=== PATIENT | female | born 1965 | race Caucasian/White ===

== ENCOUNTER 2019-08-13 07:48 | Outpatient (CLI) | payer BC, MEDICARE, SELFPAY ==
--- NOTE | ~2019-08-13 | NM_ITS ---
EXAM: NM gastric emptying study DATE: 08/13/2019 12:47 INDICATION: Nausea and vomiting. TECHNIQUE: A gastric emptying study was performed using the methodology of Jey VILLAFUERTE, et al. J Nucl Med 2007; 48:568-572. The patient was given a meal consisting of 2 scrambled eggs labeled with 1 mCi Tc-99m sulfur colloid, 2 slices of toast, two packages of jam, and approximately 120 mL of water. Si multaneous anterior and posterior 1-min images of the abdomen were obtained with the patient supine a t multiple time points over a total period of 4 hours. The geometric mean of anterior and posterior v iews was determined, and the percentage retention was calculated for each time point. COMPARISON: CT abdomen and pelvis 07/02/2019 FINDINGS: Gastric retention of the radiotracer-labeled meal was 91%, 61%, and 49% at the 1-hour, 2-h our, and 4-hour time points, respectively. With this technique, apparent rapid gastric emptying is dean ggested by <30% gastric retention at 1 hour. Delayed gastric emptying is defined by gastric retention of >90% at 1 hour, >60% retention at 2 hours, or >10% retention at 4 hours. IMPRESSION: 1. Delayed gastric emptying. Reviewed, dictated and finalized at location A. INE FEED OPERATOR
== END 2019-08-13 07:49 | disposition home or self-care (01) ==
PROVIDERS: Visit Provider Internal Medicine Gastroenterology
DX: R11.2 Nausea with vomiting, unspecified (principal); R19.7 Diarrhea, unspecified; K30 Functional dyspepsia
CPT/HCPCS: 78264; A9541

== ENCOUNTER 2019-08-18 10:26 | Observation (INO) | payer BC, MEDICARE, MEDICAID, SELFPAY ==
[2019-08-18] VITALS (7 sets, daily range): BP systolic 122–163; BP diastolic 55–76; PULSE 85–103; RESP 16–20; TEMP 36.1–36.4; O2SAT 95–100; BMI 30.5
--- NOTE | ~2019-08-18 | CT_ITS ---
EXAMINATION: CT abdomen pelvis wo con DATE: 08/18/2019 11:47 INDICATION: Left lower quadrant abdominal pain. Nausea and vomiting. TECHNIQUE: Computed tomography (CT) of the abdomen and pelvis was performed without intravenous contr ast. Automated exposure control and iterative reconstruction technique were employed. Exam dose: 829 .81 mGy-cm total exam DLP. COMPARISON: 07/02/2019 CT chest abdomen pelvis FINDINGS: There are interstitial fibrotic changes and peripheral bronchiectasis and/or honeycombing i n the lower lung zones. Normal heart size. No pericardial or pleural effusion. Status post cholecystectomy. No bile duct or pancreatic ductal dilatation. No hepatic, splenic, pancr eatic, and adrenal or renal space-occupying mass lesion is evident on this limited noncontrast examin ation. 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 No urinary tract calculus or hydroureteronephrosis is evident. There is atherosclerotic calcification of the abdominal aorta and branches, including renal arteries and iliac and femoral arteries. No abdominal aortic aneurysm. No intraperitoneal or retroperitoneal o r pelvic mass lesion or adenopathy or ascites is detected. Normal appendix. No bowel obstruction or intraperitoneal free air. The urinary bladder is relatively evacuated. There is a midline infraumbilical fat-containing hernia and a very small fat-containing umbilical her ayo. Included skeletal structures are unremarkable, other than degenerative spurring of the thoracic and l umbar spine . IMPRESSION: Status post cholecystectomy No bowel obstruction or free air Reviewed, dictated and finalized at Location A. Reviewed, dictated and finalized at location B. SKILLS INSTRUCTOR
--- NOTE | 2019-08-18 11:02 | ED.NAVMDI ---
HPI - Nausea/Vomiting/Diarrhea General Chief complaint: Nausea/Vomiting/Diarrhea Stated complaint: nausea and vomiting Time Seen by Provider: 08/18/19 10:45 Source: patient Mode of arrival: ambulatory Limitations: no limitations History of Present Illness HPI Narrative: Nelli is a 54-year-old female patient. She has type 2 diabetes mellitus since 2005. She is insulin dependent. She is also on metformin. She has history of chronic nausea and vomiting. For the past 5-6 weeks she has had intermittent episodes of nausea and vomiting. She has seen the wet room supervisor Dr. Nieves. He has done a swallow study on her. She is scheduled to have an EGD done by Dr. Nieves at [facility] on September 04, 2019. For the past 3-4 days she has not been able to eat much because of nausea and vomiting. The emesis is watery and clear. She had some diarrhea yesterday but none today. She has occasional abdominal cramps in the epigastric area along with the emesis. She has history of pancreatitis in the past. Her abdominal surgeries include cholecystectomy, , hysterectomy. She has had a colonoscopy 5 years ago. She was found to have hemorrhoids but no polyps. She also has history of pulmonary fibrosis. She follows up with Dr. Harper at the pulmonary clinic. She has diabetic foot problems with some ulcers for which she goes to the wound clinic. No history of fever. MD elicited complaint: nausea, vomiting and diarrhea Pertinent past history: abdominal surgery and pacreatitis Onset (ago): week(s) Description of vomiting: watery Description of diarrhea: watery Associated nausea: Yes Associated abdominal pain: Yes ( See HPI narrative) Location of pain: epigastric ( see HPI narrative) Radiation: other ( no radiation of pain) Pain consistency: intermittent Severity: mild Pain scale (0-10): 3 Quality: cramping Exacerbating factors: eating Relieving factors: none Context: other ( see HPI narrative) Associated symptoms: other ( no fever or chills. Nausea and vomiting as described above. Some abdominal cramps. Had diarrhea yesterday and none today.) Treatment prior to arrival: none Related Data Home Medications Medication Instructions Recorded Confirmed albuterol sulfate 2.5 mg INHALATION Q4H PRN 05/22/19 08/18/19 albuterol sulfate 90 mcg/actuation 2 puff INHALATION BID 05/22/19 08/18/19 aerosol inhaler fluticasone fur. 100 mcg-umeclid 1 inhalation INHALATION DAILY 05/22/19 08/18/19 62.5 mcg-vilant 25 mcg inhalat.powder prednisone 10 mg tablet 10 mg PO DAILY 05/22/19 08/18/19 aspirin 81 mg tablet,delayed 81 mg PO DAILY 05/28/19 08/18/19 release brimonidine 0.2 % eye drops 1 drop EACH EYE Q8H 05/28/19 08/18/19 calcitriol 0.5 mcg capsule 0.5 mcg PO QAM 05/28/19 08/18/19 chlorthalidone 25 mg tablet 25 mg PO DAILY tablet 05/28/19 08/18/19 montelukast 10 mg tablet 10 mg PO .bedtime tablet 05/28/19 08/18/19 omeprazole 40 mg capsule,delayed 40 mg PO DAILY 05/28/19 08/18/19 release Levemir U-100 Insulin 60 unit SUBCUT HS 07/02/19 08/18/19 quetiapine 25 mg BYMOUTH HS 07/02/19 08/18/19 ktxkexycwup-nyyjbozjm-fenjzzwp 1 inh INHALATION QAM 08/12/19 08/18/19 [Trelegy Ellipta] nintedanib [Ofev] 150 mg PO BID 08/12/19 08/18/19 Allergies Allergy/AdvReac Type Severity Reaction Status Date / Time codeine Allergy Severe Swelling Verified 08/12/19 11:02 of Lip/Tongue/Throat ibuprofen Allergy Severe Swelling Verified 08/12/19 11:02 of Lip/Tongue/Throat beer Allergy Severe Anaphylaxis Uncoded 07/02/19 08:11 [place] Seed Allergy Severe Swelling Uncoded 08/12/19 11:02 of Lip/Tongue/Throat Review of Systems Review of Systems: All systems reviewed & are unremarkable except as noted in HPI and below Constitutional: Constitutional: Reports as per HPI, Denies chills, Denies fever(s) and Reports weakness Eyes: Eyes: Reports as per HPI, Reports no additional eye complaints, Denies change in vis
[2019-08-18 11:09] LABS: Appearance Urine Sl Cloudy (Clear); Bilirubin Urine 2+ (Negative); Color Urine Yellow (Yellow); Glucose Urine UA Negative (Negative); Ketones Urine 1+ (Negative); Leukocyte Esterase Ur Negative LEU/UL (Negative); Nitrate Urine Negative (Negative); Protein Urine 3+ (Negative); Specific Grav Ur >= 1.030 (1.010-1.020); pH Urine 5.5 (5.0-8.0)
[2019-08-18] MEDS: SODIUM CHLORIDE 0.9% IV 1,000 ML 999 ML IV CONT (11:09)
[2019-08-18] MEDS: ONDANSETRON INJ 4 MG/2 ML VIAL IV PUSH ×2 (11:09→16:13)
[2019-08-18] MEDS: PANTOPRAZOLE SODIUM IV 40 MG VIAL IV PUSH (11:10)
[2019-08-18 11:22] LABS: Add Urine Microscopic? YES; Blood Urine Trace-Intact (Negative)
[2019-08-18 11:23] LABS: Amorphous Sediment Urine Moderate; Bacteria Urine 2+ /hpf; RBC Urine 0-2 /hpf (0-2); Squamous Epithelial Cell Urine Few /hpf (Few); WBC Urine 0-3 /hpf (0-3)
[2019-08-18 11:36] LABS: Basophils Absolute Auto 0.01 K/mm3 (0.00-0.10); Basophils Percent Auto 0.1 % (0.0-1.0); Eosinophils Absolute Auto 0.15 K/mm3 (0.02-0.50); Hematocrit 34.9 % (35.0-49.0); Hemoglobin 11.7 g/dL (12.0-15.0); Immature Granulocyte Absolute 0.04 K/mm3 (0.00-0.00); Immature Granulocyte Percent A 0.5 % (0.0-0.0); Lymphocytes Absolute Auto 2.71 K/mm3 (1.10-4.50); Lymphocytes Percent Auto 36.1 % (18.0-42.0); Mean Corpuscular HGB Conc 33.5 g/dL (32.0-36.0); Mean Corpuscular Hemoglobin 30.3 pg (27.0-31.0); Mean Corpuscular Volume 90.4 fL (78.0-102.0); Mean Platelet Volume 10.5 fl (9.2-11.8); Monocytes Absolute Auto 0.39 K/mm3 (0.10-0.90); Monocytes Percent Auto 5.2 % (2.0-11.0); Neutrophils Absolute Auto 4.2 K/mm3 (1.7-7.2); Neutrophils Percent Auto 56.1 % (50.0-70.0); Platelet Count Result 337 K/mm3 (150-420); Red Blood Count 3.86 M/mm3 (4.20-5.40); Red Cell Distribution Width 13.4 % (11.6-14.4); White Blood Count 7.5 K/mm3 (4.8-10.8)
[2019-08-18 11:48] LABS: Hemoglobin A1C 7.8 % (<5.7)
[2019-08-18 11:51] LABS: Alanine Aminotransferase 31 U/L (14-59); Albumin Level 3.2 g/dL (3.4-5.0); Alkaline Phosphatase 91 U/L (46-116); Anion Gap 18.4 mmol/L (7-16); Aspartate Amino Transferase 18 U/L (15-37); Bilirubin,Total 0.4 mg/dL (0.00-1.00); Blood Urea Nitrogen 16 mg/dL (7-18); Calcium 9.5 mg/dL (8.5-10.1); Carbon Dioxide 28 mmol/L (21-32); Chloride 100 mmol/L (98-108); Estimated Glomerular Filt Rate 39; Glucose 150 mg/dL (70-99); Lipase 134 U/L (73-393); Osmolality Calculated 300 mOsm/kg (285-295); Potassium 3.4 mmol/L (3.5-5.1); Sodium 143 mmol/L (136-145)
[2019-08-18 11:59] LABS: Amylase 118 U/L (25-115)
[2019-08-18 12:15] LABS: Lactic Acid 1.9 mmol/L (0.4-2.0)
[2019-08-18 12:22] LABS: Base Excess ABG 4.3 mmol/L (0-2); HCO3 ABG 27.8 mmol/L (23-29); Oxygen Content ABG 16.3 %vol (16.0-22.0); Oxyhemoglobin 97.6 % (94-100); PCO2 ABG 37.6 mmHg (35-45); PO2 ABG 150.7 mmHg (80-90); Total Hemoglobin 11.7 g/dL; pH ABG 7.49 (7.35-7.45)
[2019-08-18 12:23] LABS: Device NASAL CANNULA; Modified Allen's Test Pass; Site Drawn RIGHT RADIAL
[2019-08-18] MEDS: KCL 20 MEQ/SW 100 ML 100 ML 50 MEQ IVPB ×2 (13:12→15:23)
[2019-08-18] MEDS: SODIUM CHLORIDE 0.9% IV 1,000 ML 200 ML (13:12)
--- NOTE | 2019-08-18 13:20 | PC.NURSE ---
2ND LITER NS AND POTASSIUM INFUSING TO SECOND FLOOR
--- NOTE | 2019-08-18 14:21 | ADMGEN ---
This patient, Nelli Hood, was admitted to 2nd Floor Room 203-1. Patient/family oriented to hospital policies and general routines including ID bracelet, bed and alarms, visiting hours, pain management, procedures, bathroom and other care routines, personal items, smoking policy, room service/diet, and visiting hours. Valuables list has been completed. Information on how to activate the Rapid Response Team has been discussed. Patient/Family are encouraged to report perceived risks to care and to ask questions if they do not understand what they are told or what they should do.
--- NOTE | 2019-08-18 14:50 | PM.IMHP ---
H&P: HPI History of Present Illness Chief complaint: nausea and vomiting Narrative: Nelli Hood is a 54 year old female That presented today with 5 days of nausea vomiting and diarrhea. She has a medical history COPD, bipolar 1 disorder, chronic diarrhea, chronic chronic pancreatitis, depression, type 2 diabetes uncontrolled, diastolic dysfunction, essential hypertension, gerd, hyperlipidemia, and pulmonary fibrosis. she is being admitted for diabetic gastroparesis. Her GI doctor is Dr. Nieves she did have an gastric emptying study Completed August 05 they indicated that she had delayed gastric emptying. she had a EGD scheduled for August to 08/19/2019 . She did have to cancel that appointment because she was admitted and have rescheduled for September 04. her vital signs are 36.2, 100, 20, 163/76 and 100% on room air. While in the ER CT of the abdomen and pelvis was completed and was unremarkable her anion gap was 18.4 in her amylase was slightly a elevated 18.4 A1c was 7.8. According to patient for the past 5-6 weeks she has had intermitted episodes of nausea vomiting. According to patient her nausea vomiting has not resolved from her last admission which was last month. She noted that she has been having nausea vomiting. Vomiting consisted hold foods and occasional diarrhea as a result she has fatigue. she does have a past history of pancreatitis. She did know since she has been here on the floor she has not had any nausea vomiting or diarrhea and is ready to attempt to eat ice chips. We give her anti emesis, Reglan in fluids while she is here. Patient denies SOB, CP, palpitation, extremity numbness, lightheadness, dizziness, constipation, or chills or fever. Review of Systems Constitutional: Constitutional: Reports fatigue, Denies fever(s), Reports lethargy and Reports weakness Cardiovascular: Cardiovascular: Reports chest pain at rest, Reports lightheadedness, Reports dyspnea on exertion and Reports orthopnea Respiratory: Respiratory: Denies chest congestion, Denies cough, Denies dyspnea and Denies wheezing Gastrointestinal: Gastrointestinal: Denies constipation, Denies diarrhea, Denies loose stools, Reports nausea, Reports vomiting and Denies hematemesis Genitourinary: Genitourinary: Denies nocturia, Denies urinary incontinence and Denies urinary hesitancy Musculoskeletal: Musculoskeletal: Denies atrophy, Denies muscle weakness, Denies numbness and Denies stiffness Integumentary/Breasts: Skin/Breast: Reports wounds Comments: left and right healing heel ulcer and right great toe healing ulcer and calluses on left outer foot Neurologic: Denies confusion, Denies vertigo, Denies dizziness, Denies syncope and Denies numbness Psychiatric: Psychiatric: Denies confusion and Denies depression Endocrine: Endocrine: Reports fatigue and Reports polydipsia [facility] Past Medical History Medical History (Updated 08/19/19 @ 14:25 by OFELIA Tinajero) Acute exacerbation of chronic obstructive pulmonary disease (COPD) (04/02/12) Albuminuria Bipolar 1 disorder Chronic diarrhea Chronic pancreatitis (Unknown) Depression Diabetes type 2, uncontrolled (02/21/12) Diastolic dysfunction Essential hypertension SHREE (generalized anxiety disorder) (11/11/13) Hyperlipidemia (02/21/12) Pulmonary fibrosis Retinopathy due to secondary diabetes Skin cancer Tobacco dependence Type 2 diabetes mellitus with foot ulcer Surgical History Surgical History (Updated 08/18/19 @ 11:12 by Joe Billingsley MD) Hx of cholecystectomy (~06/14/12) Hx of colonoscopy Hx of hysterectomy Family History Family History (Updated 08/18/19 @ 11:13 by Joe Billingsley MD) Father , father of pulmonary fibrosis and heart problems. He was a diabetic also. Age at was 55 a 56 years old Family history of chronic obstructive pulmonary disease Mother Family history of chronic obstructive pulmonary disease S
--- NOTE | 2019-08-18 15:04 | PC.NURSE ---
1340 PATIENT TO THE FLOOR TO ROOM 203. KCL 20 MEQ IV RIDER INFUSING ORDERED. INTIAL ADMISSION ASSESSMENT AND HEALTH HISTORY COMPLETED. DRESSINGS TO FEET BILAT WOUNDS ASSESSMENT AND CHANGED PER NURSE AND BIGG LOEPZ RN LABOR AND DELIVERY. PATIENT DENIES N/V AT PRESENT.NSR ON TELE 88 HR. 1455 BEDSIDE REPORT GIVEN TO DAVIAN Quinones RN.
[2019-08-18] MEDS: SODIUM CHLORIDE 0.45% 1,000 ML 125 ML IV CONT ×2 (15:28→23:36)
--- NOTE | 2019-08-18 15:55 | PC.NURSE ---
k rider infusing, fluids infusing, no nausea and vomiting at this time
--- NOTE | 2019-08-18 16:17 | PC.NURSE ---
zofran given for nausea, no vomiting noted
--- NOTE | 2019-08-18 17:00 | PC.NURSE ---
clear liquid tray and evening meds to patient, will try to take them, states still some nauseated, no emesis
[2019-08-18] MEDS: METOCLOPRAMIDE HCL 10 MG TABLET 5 MG PO (17:07)
[2019-08-18] MEDS: PANTOPRAZOLE 40 MG TABLET PO (17:08)
[2019-08-18] MEDS: metFORMIN HCL 500 MG TABLET 1000 MG PO (17:08)
[2019-08-18] MEDS: GABAPENTIN 300 MG CAPSULE 600 MG PO (17:08)
[2019-08-18] MEDS: PROCHLORPERAZINE EDISYLATE 10 MG/2 ML VIAL IV PUSH (18:04)
--- NOTE | 2019-08-18 18:12 | PC.NURSE ---
compazine given for continued nausea, small emesis after trying to eat popcicle, did not take oral meds at this time
--- NOTE | 2019-08-18 19:24 | PC.NURSE ---
Patient observed having her friend remove dressing on foot. Stated that it was hurting her .Education given regarding importance of keeping area covered. Disregarded by patient.
[2019-08-18 20:05] LABS: Glucose Point of Care 133 (65-105)
[2019-08-18] MEDS: QUEtiapine FUMARATE 25 MG TABLET PO (20:19)
[2019-08-18] MEDS: MONTELUKAST SODIUM 10 MG TABLET PO (20:19)
[2019-08-18] MEDS: INSULIN DETEMIR 100 UNITS/ML 60 UNITS SUB-Q (20:21)
--- NOTE | 2019-08-18 20:43 | PC.NURSE ---
Fluids continues as ordered. 200 ml output. taking oral fluids also. refuses to keep heels elevated. Requested PRN jj to help her sleep Denies nausea and/or vomiting
--- NOTE | 2019-08-18 21:07 | PC.NURSE ---
Patient refused PM eye drops. Continues on fluids as ordered. No incidence of diarrhea. Denies vomiting or nausea
--- NOTE | 2019-08-18 22:00 | PC.NURSE ---
Patient resting with call light in reach. Fluids continue as ordered. No incidence of nausea or vomiting. No diarrhea reported
--- NOTE | 2019-08-19 00:16 | PC.NURSE ---
Patient continues on fluids as ordered. Up ad roma to toilet. Denies nausea or vomiting. No episodes of diarrhea. Refused PM eyedrops
--- NOTE | 2019-08-19 00:46 | PC.NURSE ---
Sleeping, no signs of nausea or distress. IV:0.45% continues at 125ml/hr. per IV pump without signs of infiltration/infection.
--- NOTE | 2019-08-19 02:20 | PC.NURSE ---
Sleeping, no signs of nausea. 0.9NS continues at 125ml per hour per IV pump.
[2019-08-19 03:00] VITALS: PULSE 89
[2019-08-19 04:00] VITALS: PULSE 90
[2019-08-19 04:34] VITALS: BP 137/72; PULSE 94; RESP 18; TEMP 36.4; O2SAT 100
[2019-08-19 05:31] LABS: Basophils Absolute Auto 0.01 K/mm3 (0.00-0.10); Basophils Percent Auto 0.2 % (0.0-1.0); Eosinophils Absolute Auto 0.22 K/mm3 (0.02-0.50); Eosinophils Percent Auto 3.9 % (1.0-6.0); Hematocrit 33.6 % (35.0-49.0); Hemoglobin 11.2 g/dL (12.0-15.0); Immature Granulocyte Absolute 0.02 K/mm3 (0.00-0.00); Immature Granulocyte Percent A 0.4 % (0.0-0.0); Lymphocytes Absolute Auto 2.06 K/mm3 (1.10-4.50); Lymphocytes Percent Auto 36.6 % (18.0-42.0); Mean Corpuscular HGB Conc 33.3 g/dL (32.0-36.0); Mean Corpuscular Hemoglobin 30.6 pg (27.0-31.0); Mean Corpuscular Volume 91.8 fL (78.0-102.0); Monocytes Absolute Auto 0.34 K/mm3 (0.10-0.90); Neutrophils Percent Auto 52.9 % (50.0-70.0); Platelet Count Result 275 K/mm3 (150-420); Red Blood Count 3.66 M/mm3 (4.20-5.40); Red Cell Distribution Width 13.5 % (11.6-14.4); White Blood Count 5.6 K/mm3 (4.8-10.8)
[2019-08-19 05:48] LABS: Alanine Aminotransferase 28 U/L (14-59); Albumin Level 2.9 g/dL (3.4-5.0); Alkaline Phosphatase 79 U/L (46-116); Anion Gap 15.3 mmol/L (7-16); Aspartate Amino Transferase 21 U/L (15-37); Bilirubin,Total 0.3 mg/dL (0.00-1.00); Blood Urea Nitrogen 12 mg/dL (7-18); Calcium 8.7 mg/dL (8.5-10.1); Carbon Dioxide 26 mmol/L (21-32); Chloride 103 mmol/L (98-108); Estimated CRCL calculation 46 ml/min; Estimated Glomerular Filt Rate 48; Glucose 65 mg/dL (70-99); Osmolality Calculated 289 mOsm/kg (285-295); Potassium 3.3 mmol/L (3.5-5.1); Sodium 141 mmol/L (136-145); Total Protein 7.4 g/dL (6.4-8.2)
--- NOTE | 2019-08-19 06:00 | PC.NURSE ---
Sleeping, arouses easily to name called. All bedtime medications found in cup at bedside. RN observed patient taking medication. Denies nausea or discomfort.
[2019-08-19] MEDS: PANTOPRAZOLE 40 MG TABLET PO (06:01)
[2019-08-19] MEDS: METOCLOPRAMIDE HCL 10 MG TABLET 5 MG PO ×2 (06:01→11:55)
[2019-08-19] MEDS: BRIMONIDINE TARTRATE 0.2% OP SOLN 5 ML BTL 1 DROP EACH EYE (06:02)
--- NOTE | 2019-08-19 06:20 | PC.NURSE ---
Blood Glucose:65; asymptomatic for signs of hypoglycemia; given orange juice and Crystal Mist per patient request.
--- NOTE | 2019-08-19 06:21 | PC.NURSE ---
Labs back. Patient glucose 65. Patient rouses easily and is asymptomatic. Provided OJ-refused to drink. Requested regular Crystal Mist-provided.
--- NOTE | 2019-08-19 07:30 | PC.NURSE ---
denies nausea, no vomiting, fluids infusing
[2019-08-19] MEDS: SODIUM CHLORIDE 0.45% 1,000 ML 125 ML IV CONT (07:56)
[2019-08-19 08:00] VITALS: BP 113/60; PULSE 86; RESP 20; TEMP 36.3; O2SAT 98
[2019-08-19 08:09] LABS: Magnesium 1.5 mg/dL (1.8-2.4)
[2019-08-19 08:30] LABS: Amylase 121 U/L (25-115); Lipase 341 U/L (73-393)
--- NOTE | 2019-08-19 08:30 | PC.NURSE ---
ate clear liquid diet, requesting increase diet, would like to go home today, is still having some loose stools, no n/v
--- NOTE | 2019-08-19 09:15 | PHAR ---
08/19/19 - VERIFIED PT.'S HOME MEDS TRELEGY ELLIPTA, LEVEMIR INSULIN, AND OZEMPIC INJECTION. TLS
[2019-08-19] MEDS: MAGNESIUM SULF 2 GM/WATER 50ML 2 GM/50 ML BAG IVPB (09:18)
[2019-08-19] MEDS: POTASSIUM CHLORIDE 20 MEQ PACKET (FOR LIQUID) 40 MEQ PO (09:19)
[2019-08-19] MEDS: calcitrioL 0.25 MCG CAPSULE 0.5 MCG PO (09:20)
[2019-08-19] MEDS: predniSONE 10 MG TABLET PO (09:21)
[2019-08-19] MEDS: GABAPENTIN 300 MG CAPSULE 600 MG PO ×2 (09:21→13:21)
[2019-08-19] MEDS: CHLORTHALIDONE 25 MG TABLET PO (09:24)
[2019-08-19] MEDS: LOPERAMIDE HCL 2 MG CAPSULE PO ×2 (09:32→13:22)
--- NOTE | 2019-08-19 09:33 | PC.NURSE ---
x2 loose stools today, loperamide given for loose stools
--- NOTE | 2019-08-19 09:36 | PC.NURSE ---
dietary notified, increased to bland diet
--- NOTE | 2019-08-19 10:30 | PC.NURSE ---
up in chair, denies needs, no nausea vomiting, no further loose stool at this time, fluids infusing
--- NOTE | 2019-08-19 11:14 | PC.NURSE ---
in chair, no n/v, no further diarrhea at this time, taking po fluids, fluids infusing
[2019-08-19 12:00] VITALS: PULSE 85; RESP 18
--- NOTE | 2019-08-19 12:20 | PC.NURSE ---
tolerating lunch well, denies needs at this time, ready to discharge to home, awaiting orders
--- NOTE | 2019-08-19 14:15 | PC.NURSE ---
Discharge instructions reviewed with patient, no questions voiced, personal items and medications returned to patient, discharged via wheel chair to home with sister
--- NOTE | 2019-08-19 14:38 | PM.DS ---
DS: Diagnosis Admitting Diagnosis Admitting Diagnosis: Type 2 diabetes mellitus with foot ulcer Discharge Diagnosis (1) Type 2 diabetes mellitus: Qualifiers: Diabetes mellitus complication detail: with foot ulcer Diabetes mellitus complication status: with skin complications Diabetes mellitus halfway insulin use: with halfway use Qualified Code(s): E11.621 - Type 2 diabetes mellitus with foot ulcer; L97.509 - Non-pressure chronic ulcer of other part of unspecified foot with unspecified severity; Z79.4 - detention (current) use of insulin Code(s): E11.9 - Type 2 diabetes mellitus without complications Status: Chronic Assessment and Plan: - Blood sugar controlled - continue home medications with sliding still and and hypoglycemic protocol - Follow-up with PCP (2) Nausea & vomiting: Qualifiers: Vomiting Intractability: non-intractable Vomiting type: unspecified Qualified Code(s): R11.2 - Nausea with vomiting, unspecified Code(s): R11.2 - Nausea with vomiting, unspecified Status: Acute Assessment and Plan: secondary to diabetic gastroparesis - continue Zofran, and Compazine. call to Dr. Nieves office he is okay with patient discharging with Zofran and Compazine. he did not want her to have the Reglan due to his interaction with her SSI. -NM gastric emptying study indicated delayed gastric emptying - keep scheduled EGD for September 04, [address] Nieves - patient educated on proper diet to prevent nausea and vomiting (3) Dehydration: Code(s): E86.0 - Dehydration Status: Acute Assessment and Plan: secondary to nausea vomiting and diarrhea - patient encouraged to hydrate - resolved patient's nausea vomiting and dehydration (4) Hypokalemia: Code(s): E87.6 - Hypokalemia Status: Acute Assessment and Plan: stable on discharge possibly secondary to nausea, vomiting, diarrhea and dehydration - (5) Chronic diarrhea: Code(s): K52.9 - Noninfective gastroenteritis and colitis, unspecified Status: Acute Assessment and Plan: resolved - stool study pending - continue Imodium (6) Chronic renal failure, stage 3 (moderate): Code(s): N18.3 - Chronic kidney disease, stage 3 (moderate) Status: Chronic Assessment and Plan: - stable patient at baseline - avoid nephrotoxic agents - follow-up with PCP (7) Diastolic dysfunction: Code(s): I51.89 - Other ill-defined heart diseases Status: Acute Assessment and Plan: stable - patient currently not on any diaphoretic. - Will closely monitor (8) Chronic pancreatitis: Onset Date: Unknown Qualifiers: Pancreatitis type: unspecified pancreatitis type Qualified Code(s): K86.1 - Other chronic pancreatitis Code(s): K86.1 - Other chronic pancreatitis Status: Acute Assessment and Plan: stable patient with history of pancreatitis - follow-up with PCP - CT does not indicate pancreatitis (9) Tobacco dependence: Code(s): F17.200 - Nicotine dependence, unspecified, uncomplicated Status: Acute Assessment and Plan: - nicotine patch ordered - patient educated on smoking cessation (10) Essential hypertension: Code(s): I10 - Essential (primary) hypertension Status: Acute Assessment and Plan: - stable - contin - continue home medication - follow-up with PCP (11) Acute exacerbation of chronic obstructive pulmonary disease (COPD): Onset Date: 04/02/12 Code(s): J44.1 - Chronic obstructive pulmonary disease with (acute) exacerbation Status: Acute Assessment and Plan: stable - continue home medication (12) Diabetic gastroparesis associated with type 2 diabetes mellitus: Code(s): E11.43 - Type 2 diabetes mellitus with diabetic autonomic (poly)neuropathy; K31.84 - Gastroparesis Status: Acute
[2019-08-20 08:51] LABS: Glucose Point of Care 99 (65-105)
[2019-08-20 08:51] LABS: Glucose Point of Care 112 (65-105)
--- NOTE | 2019-08-25 13:42 | PCDIET ---
Discharge call back completed by automobile service writer. Pt has no issues and understands her discharge instructions. Pt states The nurses are all great .
== END 2019-08-19 14:15 | disposition home or self-care (01) ==
LOC: CHSED 13:05 → CHS2ND 13:24
PROVIDERS: Nurse Practitioner; Admitting Provider Surgery; Emergency Provider Surgery; PCP Nurse Practitioner Family; Visit Provider Surgery
DX: E86.0 Dehydration (principal); E11.43 Type 2 diabetes mellitus with diabetic autonomic (poly)neuropathy; K31.84 Gastroparesis; K52.9 Noninfective gastroenteritis and colitis, unspecified; K86.1 Other chronic pancreatitis; E11.621 Type 2 diabetes mellitus with foot ulcer; L97.509 Non-pressure chronic ulcer of other part of unspecified foot with unspecified severity; E87.6 Hypokalemia; N18.3 Chronic kidney disease, stage 3 (moderate); I12.9 Hypertensive chronic kidney disease with stage 1 through stage 4 chronic kidney disease, or unspecified chronic kidney disease; E11.22 Type 2 diabetes mellitus with diabetic chronic kidney disease; J44.9 Chronic obstructive pulmonary disease, unspecified; J84.10 Pulmonary fibrosis, unspecified; F32.9 Major depressive disorder, single episode, unspecified; F31.9 Bipolar disorder, unspecified
CPT/HCPCS: 51701; 36415; 36600; 74176; 80053; 81001; 82150; 82805; 83036; 83605; 83690; 83735; 85025; 96361; 96365; 96366; 96375; 96376; 99285; A9270; C9113; G0378; J0780; J1200; J1815; J2405; J3475; J3480; J7030; J7512

== ENCOUNTER 2019-09-02 08:50 | Outpatient (CLI) | payer BC, MEDICARE, MEDICAID, SELFPAY ==
[2019-09-02 10:08] LABS: Alanine Aminotransferase 32 U/L (14-59); Albumin Level 3.5 g/dL (3.4-5.0); Alkaline Phosphatase 93 U/L (46-116); Anion Gap 12.9 mmol/L (7-16); Aspartate Amino Transferase 20 U/L (15-37); Bilirubin,Total 0.2 mg/dL (0.00-1.00); Blood Urea Nitrogen 22 mg/dL (7-18); Calcium 9.5 mg/dL (8.5-10.1); Carbon Dioxide 31 mmol/L (21-32); Chloride 101 mmol/L (98-108); Cholesterol 206 mg/dL (0-200); Estimated Glomerular Filt Rate 44; Glucose 138 mg/dL (70-99); HDL Direct 34 mg/dL (40-60); LDL Cholesterol Calculated 107 mg/dL (<130); Osmolality Calculated 295 mOsm/kg (285-295); Potassium 4.9 mmol/L (3.5-5.1); Sodium 140 mmol/L (136-145); Total Protein 7.6 g/dL (6.4-8.2); Triglycerides 325 mg/dL (0-150)
== END 2019-09-02 08:51 | disposition home or self-care (01) ==
LOC: CHSLAB 08:53
PROVIDERS: PCP Nurse Practitioner Family; Visit Provider Internal Medicine Cardiovascular Disease
DX: E78.5 Hyperlipidemia, unspecified (principal)
CPT/HCPCS: 36415; 80053; 80061

== ENCOUNTER 2019-09-04 01:33 | Day surgery (SDC) | payer BC, MEDICARE, MEDICAID, SELFPAY ==
[2019-08-12 11:16] VITALS: BMI 30.6
[2019-09-04 11:26] LABS: Glucose Point of Care 61 (65-105)
[2019-09-04] MEDS: SODIUM CHLORIDE 0.9% IV 500 ML 10 ML IV CONT (11:30)
--- NOTE | 2019-09-04 11:41 | WPDANESEPPF ---
Anes - Initial Pre Proc Eval Procedure: Operation Date: 09/04/19 11:15 Proposed Procedures p Esophagogastroduodenoscopy - Mihir Ni MD Date/Time: 09/04/19 11:41 Surgeon: Mihir Ni MD Pre Op Diagnosis: N & V Patient Data Age: 54 Gender: F Height: 5 ft 2 in Weight: 76 kg Allergies Allergy/AdvReac Type Severity Reaction Status Date / Time codeine Allergy Severe Swelling Verified 09/04/19 11:31 of Lip/Tongue/Throat ibuprofen Allergy Severe Swelling Verified 09/04/19 11:31 of Lip/Tongue/Throat beer Allergy Severe Anaphylaxis Uncoded 09/04/19 11:31 [place] Seed Allergy Severe Swelling Uncoded 09/04/19 11:31 of Lip/Tongue/Throat Home Medications Medication Instructions Recorded Confirmed Type albuterol sulfate 2.5 mg INHALATION Q4H PRN 05/22/19 09/04/19 History albuterol sulfate 90 mcg/actuation 2 puff INHALATION BID 05/22/19 09/04/19 History aerosol inhaler fluticasone fur. 100 mcg-umeclid 1 inhalation INHALATION DAILY 05/22/19 09/04/19 History 62.5 mcg-vilant 25 mcg inhalat.powder prednisone 10 mg tablet 10 mg PO DAILY 05/22/19 09/04/19 History sertraline 100 mg tablet 50 mg PO DAILY #30 tablet 05/22/19 09/04/19 Rx aspirin 81 mg tablet,delayed 81 mg PO DAILY 05/28/19 09/04/19 History release brimonidine 0.2 % eye drops 1 drop EACH EYE Q8H 05/28/19 09/04/19 History calcitriol 0.5 mcg capsule 0.5 mcg PO QAM 05/28/19 09/04/19 History chlorthalidone 25 mg tablet 25 mg PO DAILY tablet 05/28/19 09/04/19 History montelukast 10 mg tablet 10 mg PO .bedtime tablet 05/28/19 09/04/19 History omeprazole 40 mg capsule,delayed 40 mg PO DAILY 05/28/19 09/04/19 History release quetiapine 25 mg BYMOUTH HS 07/02/19 09/04/19 History ondansetron HCl 4 mg PO Q8H PRN #14 tablet 07/03/19 09/04/19 Rx metformin 1,000 mg tablet 1,000 mg PO BID #180 tablet 07/04/19 09/04/19 Rx Ofev 150 mg PO BID 08/12/19 09/04/19 History Trelegy Ellipta 1 inh INHALATION QAM 08/12/19 09/04/19 History ondansetron HCl 4 mg tablet 4 mg PO Q8H PRN #90 tablet 08/14/19 09/04/19 Rx semaglutide 0.5 mg SUB-Q WEEKLY #1.5 ml 08/15/19 09/04/19 Rx gabapentin 600 mg tablet 600 mg PO TID #90 tablet 08/18/19 09/04/19 Rx quetiapine 25 mg tablet 25 mg PO DAILY #45 tablet 08/18/19 09/04/19 Rx loperamide 2 mg PO PRN PRN #30 cap 08/19/19 09/04/19 Rx nicotine [Nicoderm CQ] 1 patch TRANSDERMAL QAM #30 ea 08/19/19 09/04/19 Rx prochlorperazine maleate 10 mg PO Q6H PRN #60 tablet 08/19/19 09/04/19 Rx [Compazine] insulin detemir U-100 100 unit/mL 60 unit SUBCUT HS #10 ml 09/01/19 09/04/19 Rx subcutaneous solution pravastatin 20 mg tablet 20 mg PO DAILY #30 tablet 09/02/19 09/04/19 Rx Laboratory Tests 09/04/19 11:22 POC Capillary Glucose 61 mg/dl L mg/dl (65-105) Patient hx anesthesia problems: none Family hx anesthesia problems: none [facility] Past Medical History Medical History (Updated 09/04/19 @ 11:43 by Markell Villalba MD) Acute exacerbation of chronic obstructive pulmonary disease (COPD) (04/02/12) Albuminuria Bipolar 1 disorder Chronic diarrhea Chronic pancreatitis (Unknown) Chronic renal failure, stage 3 (moderate) Depression Diabetes type 2, uncontrolled (02/21/12) Diastolic dysfunction Essential hypertension SHREE (generalized anxiety disorder) (11/11/13) Hyperlipidemia (02/21/12) Pulmonary fibrosis Retinopathy due to secondary diabetes Skin cancer Tobacco dependence Type 2 diabetes mellitus with foot ulcer Surgical History Surgical History (Updated 08/18/19 @ 11:12 by Joe Billingsley MD) Hx of cholecystectomy (~06/14/12) Hx of colonoscopy Hx of hysterectomy Family History Family History (Updated 08/18/19 @ 11:13 by Joe Billingsley MD) Father , father of pulmonary fibrosis and heart problems. He was a diabetic also. Age at was 57 a 56 years old Family history of chronic obstructive pulmonary disease Mother Family
[2019-09-04] MEDS: DEXTROSE 50% 25 GM/50 ML SYRINGE IV PUSH (11:42)
[2019-09-04 11:54] LABS: Glucose Point of Care 213 (65-105)
--- NOTE | 2019-09-04 11:54 | WPDHPUPDATE1 ---
History and Physical Update Update Date/Time: 09/04/19 11:54 History and Physical has been reviewed, including an updated exam of the patient. There are NO changes in the patient's condition. Risks, benefits, and alternatives have been discussed and questions answered. Patient agrees to proceed with procedure.
[2019-09-04] MEDS: BENZOCAINE (*SP) 60 ML SPRAY CAN (HURRICAINE) 1 SPRAY MUCOUS MEM (11:56)
[2019-09-04 12:10] VITALS: BP 123/71; PULSE 85; RESP 21; O2SAT 100
[2019-09-04 12:45] LABS: Glucose Point of Care 118 (65-105)
[2019-09-04 12:48] VITALS: BP 132/80; PULSE 85; RESP 21; O2SAT 100
[2019-09-04 12:49] VITALS: BP 132/72; PULSE 83; RESP 18; O2SAT 100
== END 2019-09-04 12:48 | disposition home or self-care (01) ==
PROVIDERS: PCP Nurse Practitioner Family; Visit Provider Internal Medicine Gastroenterology
PROC: 0DJ08ZZ Inspection of Upper Intestinal Tract, Via Natural or Artificial Opening Endoscopic (ICD-10-PCS; CPT 43235; principal; 2019-09-04 11:15)
DX: K44.9 Diaphragmatic hernia without obstruction or gangrene (principal); K31.84 Gastroparesis; R19.7 Diarrhea, unspecified; R11.2 Nausea with vomiting, unspecified; I13.0 Hypertensive heart and chronic kidney disease with heart failure and stage 1 through stage 4 chronic kidney disease, or unspecified chronic kidney disease; E11.22 Type 2 diabetes mellitus with diabetic chronic kidney disease; E11.65 Type 2 diabetes mellitus with hyperglycemia; N18.3 Chronic kidney disease, stage 3 (moderate); I50.30 Unspecified diastolic (congestive) heart failure; Z79.4 Long term (current) use of insulin; E11.40 Type 2 diabetes mellitus with diabetic neuropathy, unspecified; J44.9 Chronic obstructive pulmonary disease, unspecified; F31.9 Bipolar disorder, unspecified; F41.1 Generalized anxiety disorder; E78.5 Hyperlipidemia, unspecified; E11.319 Type 2 diabetes mellitus with unspecified diabetic retinopathy without macular edema; E11.621 Type 2 diabetes mellitus with foot ulcer; L97.509 Non-pressure chronic ulcer of other part of unspecified foot with unspecified severity; J84.10 Pulmonary fibrosis, unspecified; Z79.82 Long term (current) use of aspirin; Z79.84 Long term (current) use of oral hypoglycemic drugs; Z87.891 Personal history of nicotine dependence
CPT/HCPCS: 43239; 88305; J2704; J7040

== ENCOUNTER 2019-09-06 11:49 | Emergency (ER) | payer BC, MEDICARE, MEDICAID, SELFPAY ==
[2019-09-06 11:58] VITALS: BP 132/97; PULSE 100; RESP 18; TEMP 36.7; O2SAT 98
--- NOTE | 2019-09-06 12:05 | ED.NAVMDI ---
HPI - Nausea/Vomiting/Diarrhea General Chief complaint: Nausea/Vomiting/Diarrhea Stated complaint: n/v Time Seen by Provider: 09/06/19 12:03 Source: patient, family and RN notes reviewed Mode of arrival: other Limitations: no limitations History of Present Illness HPI Narrative: Pt is a 54 y/o female who presents to the ED with c/o nausea and vomiting that began (09/04/19). Pt had an endoscopy by Dr. Nieves on (09/04/19). She states that she cannot keep anything down. Pt's family states the pt vomits every week, but she will vomit the food she ate 3-4 days ago. Pt's family states the pt's belches smells like feces. Pt normally goes to [facility], but she was recommended to come to [place] for further evaluation. Pt states that her last BM was two hours ago. She notes that she had diarrhea that was dark in color and contained mucus. She states that her last episode of emesis was 2 hours ago. Pt wears 2L of O2 at home. Pt is also taking Prednisone chronically. Pt denies a fever, lightheadedness, hematemesis, and dizziness. Pt is taking ASA 81 mg daily. MD elicited complaint: nausea and vomiting Onset (ago): day(s) (2) Description of vomiting: food contents (of the food she ate 3-4 days ago) Description of diarrhea: mucus, lose and other (dark in color) Associated nausea: Yes Relieving factors: none Associated symptoms: other (belching) Related Data Home Medications Medication Instructions Recorded Confirmed albuterol sulfate 2.5 mg INHALATION Q4H PRN 05/22/19 09/04/19 albuterol sulfate 90 mcg/actuation 2 puff INHALATION BID 05/22/19 09/04/19 aerosol inhaler fluticasone fur. 100 mcg-umeclid 1 inhalation INHALATION DAILY 05/22/19 09/04/19 62.5 mcg-vilant 25 mcg inhalat.powder prednisone 10 mg tablet 10 mg PO DAILY 05/22/19 09/04/19 aspirin 81 mg tablet,delayed 81 mg PO DAILY 05/28/19 09/04/19 release brimonidine 0.2 % eye drops 1 drop EACH EYE Q8H 05/28/19 09/04/19 calcitriol 0.5 mcg capsule 0.5 mcg PO QAM 05/28/19 09/04/19 chlorthalidone 25 mg tablet 25 mg PO DAILY tablet 05/28/19 09/04/19 montelukast 10 mg tablet 10 mg PO .bedtime tablet 05/28/19 09/04/19 omeprazole 40 mg capsule,delayed 40 mg PO DAILY 05/28/19 09/04/19 release quetiapine 25 mg BYMOUTH HS 07/02/19 09/04/19 Ofev 150 mg PO BID 08/12/19 09/04/19 Trelegy Ellipta 1 inh INHALATION QAM 08/12/19 09/04/19 Allergies Allergy/AdvReac Type Severity Reaction Status Date / Time codeine Allergy Severe Swelling Verified 09/06/19 12:01 of Lip/Tongue/Throat ibuprofen Allergy Severe Swelling Verified 09/06/19 12:01 of Lip/Tongue/Throat beer Allergy Mild Anaphylaxis Uncoded 09/06/19 12:01 [employer] [employer] Allergy Mild Swelling Uncoded 09/06/19 12:01 of Lip/Tongue/Throat Review of Systems Review of Systems: All systems reviewed & are unremarkable except as noted in HPI and below Constitutional: Constitutional: Denies fever(s) Cardiovascular: Cardiovascular: Denies lightheadedness Gastrointestinal: Gastrointestinal: Reports belching, Reports diarrhea, Reports nausea, Reports vomiting and Denies hematemesis Neurologic: Denies dizziness PMFSH Past Medical History Medical History (Updated 09/06/19 @ 15:35 by Dimple Disla MD) Acute exacerbation of chronic obstructive pulmonary disease (COPD) (04/02/12) Albuminuria Arthritis Bipolar 1 disorder Bronchitis Chronic diarrhea Chronic pancreatitis (Unknown) Chronic renal failure, stage 3 (moderate) Depression Diabetes type 2, uncontrolled (02/21/12) Diastolic dysfunction Eczema Essential hypertension SHREE (generalized anxiety disorder) (11/11/13) Gastroparesis Hyperlipidemia (02/21/12) Pulmonary fibrosis Retinopathy due to secondary diabetes Skin cancer Tobacco dependence Type 2 diabetes mellitus with foot ulcer Surgical History Surgical History (Updated 09/06/19 @ 12:25 by Dyan Valencia) History of bladder surgery History of tubal lig
[2019-09-06 12:20] LABS: Basophils Percent Auto 0.4 % (0.2-1.2); Eosinophils Absolute Auto 0.2 K/mm3 (0-0.3); Eosinophils Percent Auto 1.6 % (0-4.4); Hemoglobin 13.8 g/dL (12.0-15.0); Immature Granulocyte Absolute 0.04 K/mm3 (0.00-0.031); Immature Granulocyte Percent A 0.4 % (0-0.5); Lymphocytes Absolute Auto 3.33 K/mm3 (0.9-3.2); Lymphocytes Percent Auto 35.2 % (18.3-44.2); Mean Corpuscular HGB Conc 32.9 g/dl (32-36); Mean Corpuscular Hemoglobin 29.6 pg (26-34); Mean Corpuscular Volume 90.1 fl (80-100); Mean Platelet Volume 10.9 fl (7.4-10.4); Monocytes Absolute Auto 0.6 K/mm3 (0.1-0.6); Neutrophils Absolute Auto 5.3 K/mm3 (1.3-6.7); Neutrophils Percent Auto 56.4 % (45.5-73.1); Platelet Count Result 386 k/mm3 (150-375); Red Blood Count 4.66 M/mm3 (4.2-5.4); Red Cell Distribution Width 13.8 % (11.5-14.5); White Blood Count 9.5 K/mm3 (4.5-10.0)
[2019-09-06 12:21] VITALS: BP 138/83; PULSE 93
[2019-09-06 12:22] VITALS: BP 127/70; BP 129/81; PULSE 103; PULSE 95
[2019-09-06 12:32] LABS: Alanine Aminotransferase 23 U/L (4-35); Albumin Level 4.5 g/dL (3.5-5.1); Alkaline Phosphatase 101 U/L (38-126); Aspartate Amino Transferase 24 U/L (14-36); Bilirubin,Total 0.5 mg/dL (0.2-1.3); Blood Urea Nitrogen 17 mg/dL (7-17); Calcium 10.4 mg/dL (8.4-10.2); Carbon Dioxide 26 mmol/L (22-30); Chloride 97 mmol/L (98-107); Estimated CRCL calculation 52 ml/min; Estimated Glomerular Filt Rate 57; Glucose 187 mg/dL (65-105); Lipase 550 U/L (23-300); Sodium 137 mmol/L (137-145)
[2019-09-06] MEDS: LACTATED RINGERS 1,000 ML 999 ML IV CONT (12:44)
[2019-09-06] MEDS: ONDANSETRON INJ 4 MG/2 ML VIAL IV PUSH (12:44)
[2019-09-06 13:01] LABS: Add Urine Microscopic? YES; Appearance Urine Cloudy (Clear); Bacteria Urine 1+ /hpf; Bilirubin Urine Negative (Negative); Blood Urine 1+ (Negative); Color Urine Yellow (Yellow); Glucose Urine UA Negative (Negative); Hyaline Casts Urine 15-19 /lpf; Ketones Urine Trace mg/dL (Negative); Leukocyte Esterase Ur Negative LEU/UL (Negative); Mucus Urine Few /lpf; Nitrate Urine Negative (Negative); Protein Urine 3+ mg/dL (Negative); RBC Urine 51-75 /hpf (0-2); Specific Grav Ur 1.025 (1.001-1.035); Squamous Epithelial Cell Urine Moderate /hpf (Few); Transitional Epi Cells Urine Rare /hpf (None Seen); Urobilinogen Urine Negative mg/dL (<2.0)
[2019-09-06] MEDS: PROCHLORPERAZINE EDISYLATE 10 MG/2 ML VIAL IV PUSH (14:30)
[2019-09-06 15:49] VITALS: BP 125/70; PULSE 114; RESP 28
== END 2019-09-06 15:50 | disposition home or self-care (01) ==
PROVIDERS: Emergency Provider General Practice; PCP Nurse Practitioner Family
DX: Z79.82 Long term (current) use of aspirin (principal); E11.43 Type 2 diabetes mellitus with diabetic autonomic (poly)neuropathy; E11.22 Type 2 diabetes mellitus with diabetic chronic kidney disease; K31.84 Gastroparesis; I12.9 Hypertensive chronic kidney disease with stage 1 through stage 4 chronic kidney disease, or unspecified chronic kidney disease; N18.3 Chronic kidney disease, stage 3 (moderate); Z99.81 Dependence on supplemental oxygen; J44.9 Chronic obstructive pulmonary disease, unspecified; M19.90 Unspecified osteoarthritis, unspecified site; E78.5 Hyperlipidemia, unspecified; J84.10 Pulmonary fibrosis, unspecified; Z85.828 Personal history of other malignant neoplasm of skin; E11.319 Type 2 diabetes mellitus with unspecified diabetic retinopathy without macular edema; E11.621 Type 2 diabetes mellitus with foot ulcer; L97.509 Non-pressure chronic ulcer of other part of unspecified foot with unspecified severity; Z87.891 Personal history of nicotine dependence; F31.9 Bipolar disorder, unspecified; F41.1 Generalized anxiety disorder
CPT/HCPCS: 36415; 51701; 80053; 81001; 83690; 85025; 87086; 96361; 96374; 96375; 99284; J0780; J2405; J7120

== ENCOUNTER 2020-02-24 09:08 | Outpatient (CLI) | payer BC, MEDICARE, MEDICAID, SELFPAY ==
[2020-02-24 10:06] LABS: Albumin Level 2.9 g/dL (3.4-5.0); Anion Gap 8 mmol/L (8-16); Blood Urea Nitrogen 24 mg/dL (7-18); Carbon Dioxide 29 mmol/L (21-32); Chloride 98 mmol/L (98-108); Cholesterol 168 mg/dL (0-200); Estimated Glomerular Filt Rate 45; Glucose 218 mg/dL (70-99); HDL Direct 36 mg/dL (40-60); LDL Cholesterol Calculated 104 mg/dL (<130); Osmolality Calculated 291 mOsm/kg (285-295); Phosphorus 4.2 mg/dL (2.6-4.7); Potassium 4.4 mmol/L (3.5-5.1); Sodium 135 mmol/L (136-145); Triglycerides 141 mg/dL (0-150)
[2020-02-25 09:15] LABS: Creatinine Urine 128.57 mg/dL (40-278); Total Protein Urine Random 75.2 mg/dL (0.0-11.9)
[2020-02-27 14:33] LABS: Parathyroid Intact 42 pg/mL (14-64)
== END 2020-02-24 09:09 | disposition home or self-care (01) ==
PROVIDERS: PCP Internal Medicine Nephrology
DX: E11.8 Type 2 diabetes mellitus with unspecified complications (principal); E11.65 Type 2 diabetes mellitus with hyperglycemia
CPT/HCPCS: 36415; 80061; 80069; 82570; 83970; 84156

== ENCOUNTER 2020-05-01 11:24 | Emergency (ER) | payer MEDICARE, MEDICAID, SELFPAY ==
[2020-05-01 11:25] VITALS: BP 124/73; PULSE 70; RESP 20; TEMP 36.9; O2SAT 100
[2020-05-01] MEDS: SODIUM CHLORIDE 0.9% IV 1,000 ML 999 ML IV CONT ×2 (11:36→13:25)
[2020-05-01] MEDS: METOCLOPRAMIDE HCL INJ 10 MG/2 ML VIAL IV PUSH (11:37)
--- NOTE | 2020-05-01 11:39 | ED.GENADULT ---
HPI - General Adult General Chief complaint: Nausea/Vomiting/Diarrhea Stated complaint: ambulance Source: patient and EMS Mode of arrival: EMS History of Present Illness HPI narrative: Nelli presented to the ED by EMS because she was feeling weak with GI symptoms. She started having nausea, vomiting, and diarrhea. She has had 2-3 episodes of NBNB vomiting each day and up to 20 episodes of watery diarrhea today. No blood in vomit or diarrhea. No CP, SOB, VILLAFUERTE, dysuria, or fevers but she admits constant chills. Related Data Home Medications Medication Instructions Recorded Confirmed aspirin 81 mg tablet,delayed 81 mg PO DAILY 05/28/19 05/01/20 release brimonidine 0.2 % eye drops 1 drop EACH EYE Q8H 05/28/19 05/01/20 calcitriol 0.5 mcg capsule 0.5 mcg PO QAM 05/28/19 05/01/20 chlorthalidone 25 mg tablet 25 mg PO DAILY tablet 05/28/19 05/01/20 montelukast 10 mg tablet 10 mg PO .bedtime tablet 05/28/19 05/01/20 omeprazole 40 mg capsule,delayed 40 mg PO DAILY 05/28/19 05/01/20 release alprazolam 0.25 mg PO BID 05/01/20 05/01/20 carvedilol 6.25 mg PO BID 05/01/20 05/01/20 citalopram 20 mg PO DAILY 05/01/20 05/01/20 gabapentin 1,200 mg PO TID 05/01/20 05/01/20 insulin aspart U-100 14 unit SUBCUT AC 05/01/20 05/01/20 insulin detemir U-100 [Levemir 18 unit SUBCUT HS 05/01/20 05/01/20 U-100 Insulin] mirtazapine 7.5 mg PO HS 05/01/20 05/01/20 tramadol 50 mg PO Q6H PRN 05/01/20 05/01/20 Allergies Allergy/AdvReac Type Severity Reaction Status Date / Time codeine Allergy Severe Swelling Verified 11/20/19 09:12 of Lip/Tongue/Throat ibuprofen Allergy Severe Swelling Verified 11/20/19 09:12 of Lip/Tongue/Throat beer Allergy Mild Anaphylaxis Uncoded 11/20/19 09:12 [employer] Seed Allergy Mild Swelling Uncoded 11/20/19 09:12 of Lip/Tongue/Throat Review of Systems Constitutional: Constitutional: Reports chills, Reports fatigue, Denies fever(s) and Reports weakness Eyes: Eyes: Reports no additional eye complaints ENT: Reports system reviewed and no additional complaints, except as documented Cardiovascular: Cardiovascular: Denies chest pain, Denies rapid heart rate and Denies radiating jaw, neck or arm pain Respiratory: Respiratory: Reports no additional respiratory complaints Gastrointestinal: Gastrointestinal: Reports as per HPI Genitourinary: Genitourinary: Reports no additional female genitourinary complaints Musculoskeletal: Musculoskeletal: Reports no additional musculoskeletal complaints Integumentary/Breasts: Skin/Breast: Reports system reviewed and no additional complaints, except as docu Neurologic: Reports system reviewed and no additional complaints, except as documented Psychiatric: Psychiatric: Reports no additional psychiatric complaints Endocrine: Endocrine: Reports no additional endocrine complaints Hematologic/Lymphatic: Hematologic/Lymphatic: Reports no additional hematologic/lymphatic complaints Allergic/Immunologic: Allergic/Immunologic: Reports no additional allergic/immunologic complaints [facility] Past Medical History Medical History Acute exacerbation of chronic obstructive pulmonary disease (COPD) (04/02/12) Albuminuria Arthritis Arthritis Bipolar 1 disorder BMI 31.0-31.9,adult Bronchitis Chronic diarrhea Chronic pancreatitis (Unknown) Chronic renal failure, stage 3 (moderate) Chronic renal failure, stage 3 (moderate) Dehydration Depression Diabetes type 2, uncontrolled (02/21/12) Diastolic dysfunction Difficulty in walking Eczema Encounter for Medicare annual wellness exam Essential hypertension SHREE (generalized anxiety disorder) (11/11/13) Gastroparesis Hyperlipidemia (02/21/12) Hypokalemia Nausea & vomiting Pulmonary fibrosis Pulmonary fibrosis Retinopathy due to secondary diabetes Skin cancer Type 2 diabetes mellitus with foot ulcer Surgical History Surgical History (Reviewed 05/01/20 @ 11:
[2020-05-01 11:48] LABS: Basophils Absolute Auto 0.01 K/mm3 (0.00-0.10); Basophils Percent Auto 0.2 % (0.0-1.0); Eosinophils Absolute Auto 0.07 K/mm3 (0.02-0.50); Eosinophils Percent Auto 1.2 % (1.0-6.0); Hematocrit 36.7 % (35.0-49.0); Hemoglobin 11.7 g/dL (12.0-15.0); Immature Granulocyte Absolute 0.03 K/mm3 (0.00-0.00); Immature Granulocyte Percent A 0.5 % (0.0-0.0); Lymphocytes Absolute Auto 1.75 K/mm3 (1.10-4.50); Lymphocytes Percent Auto 30.5 % (18.0-42.0); Mean Corpuscular HGB Conc 31.9 g/dL (32.0-36.0); Mean Corpuscular Hemoglobin 27.3 pg (27.0-31.0); Mean Corpuscular Volume 85.5 fL (78.0-102.0); Mean Platelet Volume 9.9 fl (9.2-11.8); Monocytes Absolute Auto 0.31 K/mm3 (0.10-0.90); Monocytes Percent Auto 5.4 % (2.0-11.0); Neutrophils Absolute Auto 3.6 K/mm3 (1.7-7.2); Neutrophils Percent Auto 62.2 % (50.0-70.0); Platelet Count Result 406 K/mm3 (150-420); Red Blood Count 4.29 M/mm3 (4.20-5.40); Red Cell Distribution Width 15.5 % (11.6-14.4); White Blood Count 5.7 K/mm3 (4.8-10.8)
[2020-05-01 12:03] LABS: Alanine Aminotransferase 16 U/L (14-59); Alkaline Phosphatase 100 U/L (46-116); Aspartate Amino Transferase 11 U/L (15-37); Bilirubin,Total 0.3 mg/dL (0.00-1.00); Blood Urea Nitrogen 16 mg/dL (7-18); Calcium 9.9 mg/dL (8.5-10.1); Carbon Dioxide 24 mmol/L (21-32); Estimated Glomerular Filt Rate 48; Glucose 197 mg/dL (70-99); Lipase 119 U/L (73-393)
[2020-05-01 12:08] LABS: Anion Gap 11 mmol/L (8-16); Chloride 99 mmol/L (98-108); Osmolality Calculated 284 mOsm/kg (285-295); Potassium 3.8 mmol/L (3.5-5.1); Sodium 134 mmol/L (136-145)
[2020-05-01 12:24] LABS: Add Urine Microscopic? YES; Appearance Urine Clear (Clear); Bilirubin Urine 1+ (Negative); Blood Urine 2+ (Negative); Color Urine Yellow (Yellow); Glucose Urine UA Negative (Negative); Ketones Urine 1+ (Negative); Leukocyte Esterase Ur Negative (Negative); Nitrate Urine Negative (Negative); Protein Urine 3+ (Negative); Specific Grav Ur >= 1.030 (1.010-1.020); Urobilinogen Urine 0.2 mg/dL (0.2-1.0)
[2020-05-01 12:30] LABS: Squamous Epithelial Cell Urine Moderate /hpf (Few); WBC Urine 0-3 /hpf (0-3)
[2020-05-01 12:31] LABS: Bacteria Urine Trace /hpf; Mucus Urine Few /lpf
[2020-05-01 12:47] VITALS: BP 115/70; PULSE 89; O2SAT 95
[2020-05-01 14:39] VITALS: BP 148/83
== END 2020-05-01 14:40 | disposition home or self-care (01) ==
PROVIDERS: Emergency Provider Family Medicine
DX: K52.9 Noninfective gastroenteritis and colitis, unspecified (principal)
CPT/HCPCS: 36415; 80053; 81001; 83690; 85025; 87324; 96361; 96374; 99282; 99284; J2765; J7030

== ENCOUNTER 2020-05-17 07:47 | Outpatient (CLI) | payer MEDICARE, SELFPAY ==
[2020-05-17 08:13] LABS: Creatinine Urine 108.17 mg/dL (40-278); Total Protein Urine Random 108.6 mg/dL (0.0-11.9)
[2020-05-17 08:43] LABS: Anion Gap 5 mmol/L (8-16); Blood Urea Nitrogen 30 mg/dL (7-18); Calcium 8.9 mg/dL (8.5-10.1); Carbon Dioxide 30 mmol/L (21-32); Chloride 102 mmol/L (98-108); Estimated Glomerular Filt Rate 48; Glucose 281 mg/dL (70-99); Osmolality Calculated 300 mOsm/kg (285-295); Phosphorus 3.7 mg/dL (2.6-4.7); Potassium 5.2 mmol/L (3.5-5.1); Sodium 137 mmol/L (136-145)
== END 2020-05-17 07:48 | disposition home or self-care (01) ==
PROVIDERS: Visit Provider Internal Medicine Nephrology
DX: N18.30 Chronic kidney disease, stage 3 unspecified (principal)
CPT/HCPCS: 36415; 80069; 82570; 84156